=== PATIENT | female | born 1955 | race Caucasian/White ===

== ENCOUNTER 2018-02-16 15:13 | Inpatient (IN) | payer OTHER ==
[2018-02-16] MEDS: SOD CHLORIDE 0.9% 1,000 ML IV (18:01)
[2018-02-16] MEDS: ONDANSETRON 4 MG INJ IV (18:01)
[2018-02-16] MEDS: morphine 4 MG/ML VIAL IV (18:02)
[2018-02-16 18:06] LABS: ADD MAN DIFF? NO
[2018-02-16 18:07] LABS: BASOPHIL # 0.1 10^3/ul (0.0-0.1); BASOPHILS % 0.4 % (0.0-2.0); EOSINOPHILS # 0.3 10^3/ul (0.0-0.5); EOSINOPHILS % 2.1 % (0.0-7.0); HEMATOCRIT 39.9 % (37.0-47.0); LYMPHOCYTES # 2.7 10^3/ul (0.8-2.9); LYMPHOCYTES % 21.4 % (15.0-51.0); MEAN CORPUSCULAR HEMOGLOBIN 28.1 pg (29.0-33.0); MEAN CORPUSCULAR HGB CONC 32.6 g/dl (32.0-37.0); MEAN CORPUSCULAR VOLUME 86.4 fl (82.0-101.0); MEAN PLATELET VOLUME 10.3 fl (7.4-10.4); MONOCYTE # 0.8 10^3/ul (0.3-0.9); MONOCYTES % 6.6 % (0.0-11.0); NEUTROPHIL # 8.6 10^3/ul (1.6-7.5); NEUTROPHILS % 69.2 % (39.0-77.0); PLATELET COUNT 197 10^3/UL (140-415); RED BLOOD COUNT 4.62 10^6/ul (4.20-5.40); RED CELL DISTRIBUTION WIDTH 13.4 % (11.5-14.5)
[2018-02-16 18:07] LABS: WHITE BLOOD COUNT 12.4 10^3/ul (4.8-10.8)
[2018-02-16 18:10] LABS: ADD UMIC NO; UR ASCORBIC ACID NEGATIVE (NEGATIVE); UR BILIRUBIN (Dip) NEGATIVE (NEGATIVE); UR BLOOD (Dip) NEGATIVE (NEGATIVE); UR CLARITY CLEAR (CLEAR); UR COLOR YELLOW (YELLOW); UR GLUCOSE (Dip) NEGATIVE (NEGATIVE); UR KETONES (Dip) 1+ mg/dL (NEGATIVE); UR LEUKOCYTE ESTERASE (Dip) NEGATIVE Leu/ul (NEGATIVE); UR NITRITE (Dip) NEGATIVE (NEGATIVE); UR SPECIFIC GRAVITY (Dip) 1.017 (1.003-1.030); UR TOTAL PROTEIN (Dip) NEGATIVE (NEGATIVE); UR UROBILINOGEN (Dip) NEGATIVE (NEGATIVE)
[2018-02-16 18:30] LABS: ALANINE AMINOTRANSFERASE 24 IU/L (13-69); ALBUMIN 4.3 g/dl (3.3-4.9); ALBUMIN/GLOBULIN RATIO 0.91; ALKALINE PHOSPHATASE 108 IU/L (42-121); ANION GAP 15 (8-16); ASPARTATE AMINO TRANSFERASE 23 IU/L (15-46); BILIRUBIN,INDIRECT 0.5 mg/dl (0-1.1); BILIRUBIN,TOTAL 0.5 mg/dl (0.2-1.3); BLOOD UREA NITROGEN 13 mg/dl (7-20); CALCIUM 9.6 mg/dl (8.4-10.2); CARBON DIOXIDE 30 mmol/L (21-31); CHLORIDE 103 mmol/L (97-110); CREATININE 0.64 mg/dl (0.44-1.00); GLUCOSE 125 mg/dl (70-220); LIPASE 46 U/L (23-300); POTASSIUM 4.1 mmol/L (3.5-5.1); SODIUM 144 mmol/L (135-144)
[2018-02-16] MEDS ORDERED: IOHEXOL 300MG/ML 150 ML BTL (19:16)
[2018-02-16] MEDS ORDERED: SOD CHLORIDE 0.9% 100 ML (19:16)
[2018-02-16] MEDS: PIPER-TAZO 3.375 GM IV (PMX) 100 ML IVPB (21:18)
[2018-02-16] MEDS ORDERED: morphine 4 MG/ML VIAL IV (22:43)
[2018-02-16] MEDS ORDERED: BISACODYL 10 MG SUPP PR (23:30)
[2018-02-16] MEDS ORDERED: NACL 0.9% 3 ML SYG IV (23:30)
[2018-02-16] MEDS ORDERED: ACETAMINOPHEN 325 MG TAB PO ×2 (23:30)
[2018-02-16] MEDS ORDERED: MAGNESIUM HYDROXIDE 30ML CUP PO (23:30)
[2018-02-16] MEDS ORDERED: DOCUSATE SODIUM 100 MG CAP PO (23:30)
[2018-02-16] MEDS ORDERED: ONDANSETRON 4 MG INJ IV (23:30)
[2018-02-16] MEDS ORDERED: BISACODYL (EC) 5 MG TAB PO (23:30)
[2018-02-16] MEDS ORDERED: ONDANSETRON 4 MG TAB PO (23:30)
[2018-02-16] MEDS ORDERED: GLUCAGON 1 MG INJ IM (23:45)
[2018-02-16] MEDS ORDERED: DEXTROSE 50% 50 ML SYRINGE IV ×2 (23:45)
[2018-02-16] MEDS ORDERED: GLUCOSE GEL 15 GRAM TUBE BUCCAL (23:45)
[2018-02-16] MEDS ORDERED: GLUCOSE GEL 15 GRAM TUBE PO ×2 (23:45)
[2018-02-17] MEDS: ACCU-CHEK XX (02:00)
[2018-02-17] MEDS: metroNIDAZOLE 500 MG TAB PO ×3 (02:48→22:07)
[2018-02-17] MEDS: CIPROFLOXACIN 500 MG TAB PO ×2 (02:49→21:42)
[2018-02-17] MEDS: morphine 2 MG INJ IV (03:30)
[2018-02-17 06:43] LABS: ADD MAN DIFF? NO
[2018-02-17 06:46] LABS: WHITE BLOOD COUNT 9.9 10^3/ul (4.8-10.8)
[2018-02-17 06:46] LABS: BASOPHILS % 0.3 % (0.0-2.0); EOSINOPHILS # 0.2 10^3/ul (0.0-0.5); EOSINOPHILS % 2.4 % (0.0-7.0); HEMATOCRIT 36.7 % (37.0-47.0); HEMOGLOBIN 11.7 g/dl (12.0-16.0); LYMPHOCYTES # 1.8 10^3/ul (0.8-2.9); LYMPHOCYTES % 18.4 % (15.0-51.0); MEAN CORPUSCULAR HEMOGLOBIN 27.9 pg (29.0-33.0); MEAN CORPUSCULAR HGB CONC 31.9 g/dl (32.0-37.0); MEAN CORPUSCULAR VOLUME 87.4 fl (82.0-101.0); MEAN PLATELET VOLUME 10.3 fl (7.4-10.4); MONOCYTE # 0.7 10^3/ul (0.3-0.9); MONOCYTES % 7.5 % (0.0-11.0); NEUTROPHILS % 71.2 % (39.0-77.0); PLATELET COUNT 161 10^3/UL (140-415); RED CELL DISTRIBUTION WIDTH 13.3 % (11.5-14.5)
[2018-02-17 07:32] LABS: ALANINE AMINOTRANSFERASE 21 IU/L (13-69); ALBUMIN 3.5 g/dl (3.3-4.9); ALBUMIN/GLOBULIN RATIO 0.85; ALKALINE PHOSPHATASE 80 IU/L (42-121); ANION GAP 16 (8-16); ASPARTATE AMINO TRANSFERASE 23 IU/L (15-46); BILIRUBIN,INDIRECT 0.4 mg/dl (0-1.1); BILIRUBIN,TOTAL 0.4 mg/dl (0.2-1.3); BLOOD UREA NITROGEN 12 mg/dl (7-20); CALCIUM 8.7 mg/dl (8.4-10.2); CARBON DIOXIDE 30 mmol/L (21-31); CHLORIDE 103 mmol/L (97-110); CREATININE 0.73 mg/dl (0.44-1.00); GLUCOSE 92 mg/dl (70-220); POTASSIUM 4.7 mmol/L (3.5-5.1); SODIUM 144 mmol/L (135-144); TOTAL PROTEIN 7.6 g/dl (6.1-8.1)
[2018-02-17 07:58] LABS: HEMOGLOBIN A1C 6.4 % (0-5.9)
[2018-02-17] MEDS: INSULIN ASPART [NOVOLOG] 3 ML PEN SC ×4 (08:00→21:00)
[2018-02-17] MEDS: ENOXAPARIN 40 MG/0.4 ML SYG SC (08:31)
[2018-02-17] MEDS: LISINOPRIL 20 MG TAB PO (08:31)
[2018-02-17] MEDS: HYDROCODONE/APAP (5/325) TAB PO ×2 (08:32→18:12)
[2018-02-17] MEDS: METOPROLOL 25 MG TAB PO (08:33)
[2018-02-17] MEDS ORDERED: IOHEXOL 100 ML (12:08)
[2018-02-17] MEDS ORDERED: SOD CHLORIDE 0.9% 100 ML (12:08)
[2018-02-17 18:29] LABS: IRON 47 ug/dl (35-150)
[2018-02-17 18:31] LABS: LACTATE DEHYDROGENASE 709 IU/L (313-618)
[2018-02-17 18:38] LABS: % IRON SATURATION 15 % SAT (22-52); TOTAL IRON BINDING CAPACITY 316 ug/dl (241-421)
[2018-02-17 20:11] LABS: FERRITIN 43.4 ng/ml (11.1-264.0)
[2018-02-17 20:36] LABS: INR 1.18; PROTIME 15.2 Sec (11.9-14.9); PT RATIO 1.2
[2018-02-17 20:37] LABS: PARTIAL THROMBOPLASTIN TIME 38.5 Sec (25.0-35.0)
[2018-02-18] MEDS: DEXTROSE 5%-0.45% NACL 1,000 ML IV ×2 (00:27→12:45)
[2018-02-18] MEDS: ACCU-CHEK XX (02:00)
[2018-02-18] MEDS: INSULIN ASPART [NOVOLOG] 3 ML PEN SC ×6 (02:30→20:17)
[2018-02-18] MEDS: metroNIDAZOLE 500 MG TAB PO ×2 (06:20→14:26)
[2018-02-18 06:29] LABS: ADD MAN DIFF? NO
[2018-02-18 06:34] LABS: WHITE BLOOD COUNT 7.6 10^3/ul (4.8-10.8)
[2018-02-18 06:34] LABS: BASOPHILS % 0.4 % (0.0-2.0); EOSINOPHILS # 0.3 10^3/ul (0.0-0.5); EOSINOPHILS % 3.3 % (0.0-7.0); HEMATOCRIT 34.6 % (37.0-47.0); HEMOGLOBIN 11.2 g/dl (12.0-16.0); LYMPHOCYTES # 1.5 10^3/ul (0.8-2.9); LYMPHOCYTES % 19.7 % (15.0-51.0); MEAN CORPUSCULAR HGB CONC 32.4 g/dl (32.0-37.0); MEAN CORPUSCULAR VOLUME 86.5 fl (82.0-101.0); MEAN PLATELET VOLUME 10.2 fl (7.4-10.4); MONOCYTE # 0.6 10^3/ul (0.3-0.9); MONOCYTES % 8.2 % (0.0-11.0); NEUTROPHIL # 5.2 10^3/ul (1.6-7.5); NEUTROPHILS % 68.1 % (39.0-77.0); PLATELET COUNT 170 10^3/UL (140-415); RED CELL DISTRIBUTION WIDTH 13.6 % (11.5-14.5)
[2018-02-18 06:54] LABS: ANION GAP 13 (8-16); BLOOD UREA NITROGEN 11 mg/dl (7-20); CALCIUM 8.5 mg/dl (8.4-10.2); CARBON DIOXIDE 30 mmol/L (21-31); CHLORIDE 100 mmol/L (97-110); CREATININE 0.72 mg/dl (0.44-1.00); GLUCOSE 153 mg/dl (70-220); MAGNESIUM 1.8 mg/dl (1.7-2.5); PHOSPHORUS 4.7 mg/dl (2.5-4.9); POTASSIUM 4.3 mmol/L (3.5-5.1); SODIUM 139 mmol/L (135-144)
[2018-02-18] MEDS: ENOXAPARIN 40 MG/0.4 ML SYG SC (08:38)
[2018-02-18] MEDS: CIPROFLOXACIN 500 MG TAB PO (08:39)
[2018-02-18] MEDS: METOPROLOL 25 MG TAB PO (08:39)
[2018-02-18] MEDS: SOD CHLORIDE 0.9% 100 ML (09:54)
[2018-02-18] MEDS: IOHEXOL 300MG/ML 150 ML BTL (09:55)
[2018-02-18] MEDS: LISINOPRIL 20 MG TAB PO (10:46)
[2018-02-18] MEDS: HYDROCODONE/APAP (5/325) TAB PO (17:29)
[2018-02-18] MEDS: BISACODYL (EC) 5 MG TAB PO (20:09)
[2018-02-18] MEDS: CIPROFLOXACIN 400MG/D5W 200 ML IVPB (20:16)
[2018-02-18] MEDS: MAGNESIUM CITRATE 300 ML BTL PO (20:45)
[2018-02-18] MEDS: POLYETHYLENE GLYCOL 3350 119 GM POWDER PO (21:22)
[2018-02-18] MEDS: metroNIDAZOLE 500 MG/NS (PMX) 100 ML IVPB (21:38)
[2018-02-18] MEDS: ONDANSETRON 4 MG INJ IV (22:26)
[2018-02-19] MEDS: INSULIN ASPART [NOVOLOG] 3 ML PEN SC ×6 (01:04→20:25)
[2018-02-19 01:32] LABS: PROTEIN, TOTAL 6.9 g/dL (6.1-8.1)
[2018-02-19] MEDS: ACCU-CHEK XX (02:00)
[2018-02-19] MEDS: morphine 2 MG INJ IV ×4 (03:00→20:30)
[2018-02-19] MEDS: DEXTROSE 5%-0.45% NACL 1,000 ML IV ×2 (03:36→12:52)
[2018-02-19] MEDS: ONDANSETRON 4 MG INJ IV ×2 (05:03→20:48)
[2018-02-19] MEDS: metroNIDAZOLE 500 MG/NS (PMX) 100 ML IVPB ×3 (05:19→22:45)
[2018-02-19] MEDS: POLYETHYLENE GLYCOL 3350 119 GM POWDER PO (06:00)
[2018-02-19 06:47] LABS: ADD MAN DIFF? NO
[2018-02-19 06:54] LABS: BASOPHILS % 0.3 % (0.0-2.0); EOSINOPHILS # 0.1 10^3/ul (0.0-0.5); EOSINOPHILS % 1.1 % (0.0-7.0); HEMATOCRIT 38.5 % (37.0-47.0); HEMOGLOBIN 12.7 g/dl (12.0-16.0); LYMPHOCYTES # 1.3 10^3/ul (0.8-2.9); LYMPHOCYTES % 14.9 % (15.0-51.0); MEAN PLATELET VOLUME 10.9 fl (7.4-10.4); MONOCYTE # 0.6 10^3/ul (0.3-0.9); MONOCYTES % 6.9 % (0.0-11.0); NEUTROPHIL # 6.8 10^3/ul (1.6-7.5); NEUTROPHILS % 76.6 % (39.0-77.0); PLATELET COUNT 189 10^3/UL (140-415); RED BLOOD COUNT 4.53 10^6/ul (4.20-5.40); RED CELL DISTRIBUTION WIDTH 13.4 % (11.5-14.5)
[2018-02-19 06:54] LABS: WHITE BLOOD COUNT 8.9 10^3/ul (4.8-10.8)
[2018-02-19 07:19] LABS: ANION GAP 13 (8-16); BLOOD UREA NITROGEN 10 mg/dl (7-20); CALCIUM 8.9 mg/dl (8.4-10.2); CARBON DIOXIDE 29 mmol/L (21-31); CHLORIDE 104 mmol/L (97-110); CREATININE 0.63 mg/dl (0.44-1.00); GLUCOSE 195 mg/dl (70-220); MAGNESIUM 2.1 mg/dl (1.7-2.5); PHOSPHORUS 4.6 mg/dl (2.5-4.9); POTASSIUM 3.4 mmol/L (3.5-5.1); SODIUM 143 mmol/L (135-144)
[2018-02-19] MEDS: BISACODYL (EC) 5 MG TAB PO (08:02)
[2018-02-19] MEDS: CIPROFLOXACIN 400MG/D5W 200 ML IVPB ×2 (08:50→21:28)
[2018-02-19] MEDS: LISINOPRIL 20 MG TAB PO (09:00)
[2018-02-19] MEDS: METOPROLOL 25 MG TAB PO (09:00)
[2018-02-19] MEDS: ENOXAPARIN 40 MG/0.4 ML SYG SC (09:00)
[2018-02-19] MEDS: POTASSIUM CHLORIDE 100 ML IVPB ×2 (12:01→15:50)
[2018-02-19] MEDS: METOCLOPRAMIDE 10 MG INJ IV (12:28)
[2018-02-19] MEDS: NA PHOSPHATE/BIPHOS 133 ML ENEMA PR ×3 (14:27→15:50)
[2018-02-19 17:26] LABS: BETA-2 MICROGLOBULIN 3.63 mg/L (< OR = 2.51)
[2018-02-19] MEDS ORDERED: MIDAZOLAM 1 MG/ML 2 ML INJ ×2 (18:34)
[2018-02-19] MEDS ORDERED: FENTAnyl 50 MCG/ML VIAL (18:34)
[2018-02-19 23:27] LABS: ALBUMIN 3.1 g/dL (3.8-4.8); ALPHA-1-GLOBULINS 0.3 g/dL (0.2-0.3); ALPHA-2-GLOBULINS 0.8 g/dL (0.5-0.9); BETA 2 GLOBULINS 0.4 g/dL (0.2-0.5); BETA GLOBULINS 0.4 g/dL (0.4-0.6); GAMMA GLOBULINS 1.9 g/dL (0.8-1.7)
[2018-02-20] MEDS: ACCU-CHEK XX (02:00)
[2018-02-20 06:07] LABS: ADD MAN DIFF? NO
[2018-02-20 06:12] LABS: WHITE BLOOD COUNT 10.8 10^3/ul (4.8-10.8)
[2018-02-20 06:12] LABS: BASOPHILS % 0.2 % (0.0-2.0); EOSINOPHILS # 0.1 10^3/ul (0.0-0.5); HEMATOCRIT 36.1 % (37.0-47.0); HEMOGLOBIN 11.9 g/dl (12.0-16.0); LYMPHOCYTES # 1.6 10^3/ul (0.8-2.9); LYMPHOCYTES % 14.6 % (15.0-51.0); MEAN CORPUSCULAR HEMOGLOBIN 28.3 pg (29.0-33.0); MEAN PLATELET VOLUME 10.4 fl (7.4-10.4); MONOCYTE # 0.9 10^3/ul (0.3-0.9); MONOCYTES % 8.2 % (0.0-11.0); NEUTROPHIL # 8.1 10^3/ul (1.6-7.5); NEUTROPHILS % 75.5 % (39.0-77.0); PLATELET COUNT 193 10^3/UL (140-415); RED CELL DISTRIBUTION WIDTH 13.5 % (11.5-14.5)
[2018-02-20] MEDS: metroNIDAZOLE 500 MG/NS (PMX) 100 ML IVPB ×3 (06:14→21:45)
[2018-02-20] MEDS: HYDROCODONE/APAP (5/325) TAB PO ×2 (06:22→14:56)
[2018-02-20 06:38] LABS: ANION GAP 12 (8-16); BLOOD UREA NITROGEN 10 mg/dl (7-20); CALCIUM 8.3 mg/dl (8.4-10.2); CARBON DIOXIDE 31 mmol/L (21-31); CHLORIDE 105 mmol/L (97-110); CREATININE 0.67 mg/dl (0.44-1.00); GLUCOSE 161 mg/dl (70-220); PHOSPHORUS 3.3 mg/dl (2.5-4.9); POTASSIUM 4.5 mmol/L (3.5-5.1); SODIUM 143 mmol/L (135-144)
[2018-02-20] MEDS: DEXTROSE 5%-0.45% NACL 1,000 ML IV ×2 (08:12→21:53)
[2018-02-20] MEDS: INSULIN ASPART [NOVOLOG] 3 ML PEN SC ×4 (08:28→21:00)
[2018-02-20] MEDS: ENOXAPARIN 40 MG/0.4 ML SYG SC (08:29)
[2018-02-20] MEDS: CIPROFLOXACIN 400MG/D5W 200 ML IVPB ×2 (08:32→21:45)
[2018-02-20] MEDS: LISINOPRIL 20 MG TAB PO (08:42)
[2018-02-20] MEDS: METOPROLOL 25 MG TAB PO (08:43)
[2018-02-21] MEDS: ACCU-CHEK XX (02:00)
[2018-02-21] MEDS: HYDROCODONE/APAP (5/325) TAB PO (02:05)
[2018-02-21] MEDS: metroNIDAZOLE 500 MG/NS (PMX) 100 ML IVPB ×3 (05:33→22:17)
[2018-02-21 05:51] LABS: ADD MAN DIFF? NO; BASOPHILS % 0.3 % (0.0-2.0); EOSINOPHILS # 0.2 10^3/ul (0.0-0.5); EOSINOPHILS % 2.2 % (0.0-7.0); HEMATOCRIT 34.4 % (37.0-47.0); HEMOGLOBIN 11.3 g/dl (12.0-16.0); LYMPHOCYTES # 1.8 10^3/ul (0.8-2.9); MEAN CORPUSCULAR HEMOGLOBIN 28.5 pg (29.0-33.0); MEAN CORPUSCULAR HGB CONC 32.8 g/dl (32.0-37.0); MEAN CORPUSCULAR VOLUME 86.9 fl (82.0-101.0); MEAN PLATELET VOLUME 10.4 fl (7.4-10.4); MONOCYTE # 0.8 10^3/ul (0.3-0.9); MONOCYTES % 9.1 % (0.0-11.0); NEUTROPHILS % 68.2 % (39.0-77.0); PLATELET COUNT 185 10^3/UL (140-415); RED BLOOD COUNT 3.96 10^6/ul (4.20-5.40); RED CELL DISTRIBUTION WIDTH 13.5 % (11.5-14.5)
[2018-02-21 05:51] LABS: WHITE BLOOD COUNT 8.8 10^3/ul (4.8-10.8)
[2018-02-21 06:25] LABS: ANION GAP 9 (8-16); BLOOD UREA NITROGEN 9 mg/dl (7-20); CALCIUM 8.3 mg/dl (8.4-10.2); CARBON DIOXIDE 32 mmol/L (21-31); CHLORIDE 108 mmol/L (97-110); CREATININE 0.65 mg/dl (0.44-1.00); GLUCOSE 145 mg/dl (70-220); MAGNESIUM 1.9 mg/dl (1.7-2.5); PHOSPHORUS 3.1 mg/dl (2.5-4.9); POTASSIUM 4.8 mmol/L (3.5-5.1); SODIUM 144 mmol/L (135-144)
[2018-02-21] MEDS: DEXTROSE 5%-0.45% NACL 1,000 ML IV ×2 (06:51→22:21)
[2018-02-21] MEDS: morphine 2 MG INJ IV ×2 (07:28→13:20)
[2018-02-21] MEDS: INSULIN ASPART [NOVOLOG] 3 ML PEN SC ×4 (08:00→21:00)
[2018-02-21] MEDS: LISINOPRIL 20 MG TAB PO (09:00)
[2018-02-21] MEDS: ENOXAPARIN 40 MG/0.4 ML SYG SC (09:00)
[2018-02-21] MEDS: METOPROLOL 25 MG TAB PO (09:00)
[2018-02-21] MEDS: CIPROFLOXACIN 400MG/D5W 200 ML IVPB ×2 (09:15→22:17)
[2018-02-21] MEDS ORDERED: morphine SULFATE/PF (10 MG/10 ML) INJ (16:44)
[2018-02-21] MEDS ORDERED: MIDAZOLAM 1 MG/ML 2 ML INJ (16:52)
[2018-02-21] MEDS ORDERED: BUPIVACAINE 0.75%/DEXT (SPINAL) 2 ML INJ (16:52)
[2018-02-21] MEDS ORDERED: PROPOFOL 20 ML (17:24)
[2018-02-21] MEDS ORDERED: ROCURONIUM 50 MG INJ ×2 (17:24)
[2018-02-21] MEDS ORDERED: SUCCINYLCHOLINE CHLORIDE 100 MG/5 ML SYG IV (17:24)
[2018-02-21] MEDS ORDERED: LIDOCAINE 2% (SDV) 5 ML INJ (17:24)
[2018-02-21] MEDS: BUPIVACAINE 0.25% (MPF) 30 ML INJ (17:35)
[2018-02-21] MEDS ORDERED: EPHEDrine SULFATE 50 MG/5 ML SYG (17:39)
[2018-02-21] MEDS ORDERED: ONDANSETRON 4 MG INJ (17:40)
[2018-02-21] MEDS ORDERED: FAMOTIDINE 20 MG INJ (17:40)
[2018-02-21] MEDS ORDERED: SUGAMMADEX SODIUM 200 MG/2 ML VIAL IV ×2 (18:13→18:22)
[2018-02-21] MEDS ORDERED: PROCHLORPERAZINE 10 MG INJ IV (18:30)
[2018-02-21] MEDS ORDERED: FENTAnyl 50 MCG/ML VIAL IV ×3 (18:30)
[2018-02-21] MEDS ORDERED: NALOXONE (0.4 MG/ML) INJ IV (18:30)
[2018-02-21] MEDS ORDERED: HYDROmorphONE (0.2 MG/ML) 10ML SYG IV ×3 (18:30)
[2018-02-21] MEDS ORDERED: NALBUPHINE HCL (10 MG/1 ML) INJ IV (18:30)
[2018-02-21] MEDS ORDERED: HYDROmorphONE 0.5 MG/0.5 ML SYG IV ×2 (18:30)
[2018-02-21] MEDS ORDERED: LABETALOL HCL 20MG INJ IV (18:30)
[2018-02-21] MEDS ORDERED: ONDANSETRON 4 MG INJ IV ×3 (18:30→19:00)
[2018-02-21] MEDS ORDERED: hydrALAzine 20 MG INJ IV (18:30)
[2018-02-21] MEDS ORDERED: DIPHENHYDRAMINE 50 MG INJ IV ×2 (18:30)
[2018-02-21] MEDS ORDERED: MEPERIDINE 25 MG INJ IV (18:30)
[2018-02-21] MEDS ORDERED: morphine 2 MG INJ IV (19:00)
[2018-02-21] MEDS ORDERED: ACETAMINOPHEN 325 MG TAB PO (19:00)
[2018-02-21] MEDS: D5-NS + KCL 20 MEQ 1,000 ML IV (22:21)
[2018-02-22] MEDS: ACCU-CHEK XX (02:00)
[2018-02-22] MEDS: D5-NS + KCL 20 MEQ 1,000 ML IV ×2 (04:36→13:45)
[2018-02-22] MEDS: metroNIDAZOLE 500 MG/NS (PMX) 100 ML IVPB ×3 (06:04→21:47)
[2018-02-22 06:05] LABS: ADD MAN DIFF? NO
[2018-02-22 06:15] LABS: WHITE BLOOD COUNT 13.5 10^3/ul (4.8-10.8)
[2018-02-22 06:15] LABS: BASOPHIL # 0.1 10^3/ul (0.0-0.1); BASOPHILS % 0.4 % (0.0-2.0); EOSINOPHILS % 0.1 % (0.0-7.0); HEMOGLOBIN 12.7 g/dl (12.0-16.0); LYMPHOCYTES # 0.7 10^3/ul (0.8-2.9); MEAN CORPUSCULAR HEMOGLOBIN 28.1 pg (29.0-33.0); MEAN CORPUSCULAR HGB CONC 31.8 g/dl (32.0-37.0); MEAN CORPUSCULAR VOLUME 88.5 fl (82.0-101.0); MEAN PLATELET VOLUME 10.5 fl (7.4-10.4); MONOCYTES % 7.2 % (0.0-11.0); NEUTROPHIL # 11.8 10^3/ul (1.6-7.5); NEUTROPHILS % 86.9 % (39.0-77.0); PLATELET COUNT 229 10^3/UL (140-415); RED BLOOD COUNT 4.52 10^6/ul (4.20-5.40)
[2018-02-22 06:21] LABS: ANION GAP 14 (8-16)
[2018-02-22 06:35] LABS: BLOOD UREA NITROGEN 9 mg/dl (7-20); CALCIUM 7.8 mg/dl (8.4-10.2); CARBON DIOXIDE 26 mmol/L (21-31); CHLORIDE 105 mmol/L (97-110); CREATININE 0.82 mg/dl (0.44-1.00); GLUCOSE 271 mg/dl (70-220); MAGNESIUM 1.5 mg/dl (1.7-2.5); PHOSPHORUS 3.9 mg/dl (2.5-4.9); POTASSIUM 4.5 mmol/L (3.5-5.1); SODIUM 140 mmol/L (135-144)
[2018-02-22] MEDS: INSULIN ASPART [NOVOLOG] 3 ML PEN SC ×4 (08:40→21:00)
[2018-02-22] MEDS: ENOXAPARIN 40 MG/0.4 ML SYG SC (08:40)
[2018-02-22] MEDS: CIPROFLOXACIN 400MG/D5W 200 ML IVPB ×2 (08:41→21:47)
[2018-02-22] MEDS: LISINOPRIL 20 MG TAB PO (08:42)
[2018-02-22] MEDS: METOPROLOL 25 MG TAB PO (08:42)
[2018-02-22] MEDS: HYDROCODONE/APAP (5/325) TAB PO ×3 (08:43→20:56)
[2018-02-22 13:15] LABS: LACTIC ACID 1.2 mmol/L (0.5-2.0)
[2018-02-22] MEDS: MAGNESIUM SULFATE 2 GM/50 ML 50 ML IVPB (14:51)
[2018-02-23] MEDS: D5-NS + KCL 20 MEQ 1,000 ML IV ×2 (00:36→13:28)
[2018-02-23] MEDS: ACCU-CHEK XX (02:00)
[2018-02-23] MEDS: HYDROCODONE/APAP (5/325) TAB PO ×3 (04:16→20:46)
[2018-02-23 05:17] LABS: ADD MAN DIFF? NO
[2018-02-23 05:30] LABS: BASOPHILS % 0.3 % (0.0-2.0); EOSINOPHILS % 0.3 % (0.0-7.0); HEMATOCRIT 32.9 % (37.0-47.0); HEMOGLOBIN 10.7 g/dl (12.0-16.0); LYMPHOCYTES # 1.1 10^3/ul (0.8-2.9); LYMPHOCYTES % 8.2 % (15.0-51.0); MEAN CORPUSCULAR HEMOGLOBIN 28.5 pg (29.0-33.0); MEAN CORPUSCULAR HGB CONC 32.5 g/dl (32.0-37.0); MEAN CORPUSCULAR VOLUME 87.7 fl (82.0-101.0); MEAN PLATELET VOLUME 10.5 fl (7.4-10.4); MONOCYTES % 7.7 % (0.0-11.0); NEUTROPHIL # 10.8 10^3/ul (1.6-7.5); PLATELET COUNT 162 10^3/UL (140-415); RED BLOOD COUNT 3.75 10^6/ul (4.20-5.40)
[2018-02-23 05:51] LABS: PHOSPHORUS 3.1 mg/dl (2.5-4.9)
[2018-02-23 06:13] LABS: ANION GAP 9 (8-16); BLOOD UREA NITROGEN 10 mg/dl (7-20); CALCIUM 7.7 mg/dl (8.4-10.2); CARBON DIOXIDE 27 mmol/L (21-31); CHLORIDE 105 mmol/L (97-110); CREATININE 0.86 mg/dl (0.44-1.00); GLUCOSE 186 mg/dl (70-220); POTASSIUM 4.2 mmol/L (3.5-5.1); SODIUM 137 mmol/L (135-144)
[2018-02-23] MEDS: ENOXAPARIN 40 MG/0.4 ML SYG SC (06:23)
[2018-02-23] MEDS: metroNIDAZOLE 500 MG/NS (PMX) 100 ML IVPB ×3 (06:23→23:03)
[2018-02-23] MEDS: INSULIN ASPART [NOVOLOG] 3 ML PEN SC ×4 (07:59→21:00)
[2018-02-23] MEDS: METOPROLOL 25 MG TAB PO (08:25)
[2018-02-23] MEDS: LISINOPRIL 20 MG TAB PO (08:25)
[2018-02-23] MEDS: CIPROFLOXACIN 400MG/D5W 200 ML IVPB ×2 (08:26→23:03)
[2018-02-23] MEDS: OXYCODONE/ACETAMINOPHEN (5/325) TAB PO (15:28)
[2018-02-24] MEDS: ACCU-CHEK XX (02:00)
[2018-02-24] MEDS: HYDROCODONE/APAP (5/325) TAB PO ×4 (04:54→18:43)
[2018-02-24 05:35] LABS: ADD MAN DIFF? NO
[2018-02-24 05:39] LABS: WHITE BLOOD COUNT 12.7 10^3/ul (4.8-10.8)
[2018-02-24 05:39] LABS: BASOPHILS % 0.2 % (0.0-2.0); EOSINOPHILS # 0.2 10^3/ul (0.0-0.5); EOSINOPHILS % 1.3 % (0.0-7.0); HEMATOCRIT 31.1 % (37.0-47.0); HEMOGLOBIN 10.2 g/dl (12.0-16.0); LYMPHOCYTES # 1.1 10^3/ul (0.8-2.9); LYMPHOCYTES % 8.8 % (15.0-51.0); MEAN CORPUSCULAR HEMOGLOBIN 28.6 pg (29.0-33.0); MEAN CORPUSCULAR HGB CONC 32.8 g/dl (32.0-37.0); MEAN CORPUSCULAR VOLUME 87.1 fl (82.0-101.0); MEAN PLATELET VOLUME 10.5 fl (7.4-10.4); MONOCYTE # 0.9 10^3/ul (0.3-0.9); MONOCYTES % 6.9 % (0.0-11.0); NEUTROPHIL # 10.4 10^3/ul (1.6-7.5); NEUTROPHILS % 82.2 % (39.0-77.0); PLATELET COUNT 181 10^3/UL (140-415); RED BLOOD COUNT 3.57 10^6/ul (4.20-5.40); RED CELL DISTRIBUTION WIDTH 13.9 % (11.5-14.5)
[2018-02-24 05:50] LABS: ANION GAP 11 (8-16); BLOOD UREA NITROGEN 11 mg/dl (7-20); CALCIUM 7.7 mg/dl (8.4-10.2); CARBON DIOXIDE 26 mmol/L (21-31); CHLORIDE 107 mmol/L (97-110); CREATININE 0.73 mg/dl (0.44-1.00); GLUCOSE 152 mg/dl (70-220); POTASSIUM 3.7 mmol/L (3.5-5.1); SODIUM 140 mmol/L (135-144)
[2018-02-24] MEDS: metroNIDAZOLE 500 MG/NS (PMX) 100 ML IVPB ×2 (06:16→14:09)
[2018-02-24] MEDS: ENOXAPARIN 40 MG/0.4 ML SYG SC (06:17)
[2018-02-24] MEDS: CIPROFLOXACIN 400MG/D5W 200 ML IVPB (08:43)
[2018-02-24] MEDS: METOPROLOL 25 MG TAB PO (08:44)
[2018-02-24] MEDS: LISINOPRIL 20 MG TAB PO (08:44)
[2018-02-24] MEDS: INSULIN ASPART [NOVOLOG] 3 ML PEN SC ×4 (08:46→21:00)
[2018-02-24] MEDS: D5-NS + KCL 20 MEQ 1,000 ML IV ×2 (11:12→21:35)
[2018-02-24] MEDS: SOD CHLORIDE 0.9% 500 ML IV (21:34)
[2018-02-24] MEDS: MECLIZINE 12.5 MG TAB PO (21:34)
[2018-02-25] MEDS: ACCU-CHEK XX (01:32)
[2018-02-25] MEDS: HYDROCODONE/APAP (5/325) TAB PO ×3 (01:33→19:57)
[2018-02-25 06:10] LABS: ADD MAN DIFF? NO
[2018-02-25 06:20] LABS: WHITE BLOOD COUNT 10.2 10^3/ul (4.8-10.8)
[2018-02-25 06:20] LABS: BASOPHILS % 0.3 % (0.0-2.0); EOSINOPHILS # 0.2 10^3/ul (0.0-0.5); EOSINOPHILS % 2.4 % (0.0-7.0); HEMATOCRIT 28.7 % (37.0-47.0); HEMOGLOBIN 9.4 g/dl (12.0-16.0); LYMPHOCYTES # 1.3 10^3/ul (0.8-2.9); LYMPHOCYTES % 12.9 % (15.0-51.0); MEAN CORPUSCULAR HEMOGLOBIN 28.6 pg (29.0-33.0); MEAN CORPUSCULAR HGB CONC 32.8 g/dl (32.0-37.0); MEAN CORPUSCULAR VOLUME 87.2 fl (82.0-101.0); MEAN PLATELET VOLUME 10.8 fl (7.4-10.4); MONOCYTE # 0.8 10^3/ul (0.3-0.9); MONOCYTES % 7.8 % (0.0-11.0); NEUTROPHIL # 7.8 10^3/ul (1.6-7.5); NEUTROPHILS % 76.2 % (39.0-77.0); PLATELET COUNT 200 10^3/UL (140-415); RED BLOOD COUNT 3.29 10^6/ul (4.20-5.40)
[2018-02-25 06:29] LABS: ANION GAP 6 (8-16); BLOOD UREA NITROGEN 10 mg/dl (7-20); CALCIUM 7.7 mg/dl (8.4-10.2); CARBON DIOXIDE 28 mmol/L (21-31); CHLORIDE 110 mmol/L (97-110); CREATININE 0.67 mg/dl (0.44-1.00); GLUCOSE 142 mg/dl (70-220); POTASSIUM 3.5 mmol/L (3.5-5.1); SODIUM 140 mmol/L (135-144)
[2018-02-25] MEDS: ENOXAPARIN 40 MG/0.4 ML SYG SC (06:42)
[2018-02-25] MEDS: INSULIN ASPART [NOVOLOG] 3 ML PEN SC ×4 (08:00→20:28)
[2018-02-25] MEDS: METOPROLOL 25 MG TAB PO (08:34)
[2018-02-25] MEDS: LISINOPRIL 20 MG TAB PO (08:34)
[2018-02-25] MEDS ORDERED: morphine LIQ (10 MG/5 ML) CUP PO (16:30)
[2018-02-25] MEDS: D5-NS + KCL 20 MEQ 1,000 ML IV (23:43)
[2018-02-26] MEDS: ACCU-CHEK XX (01:32)
[2018-02-26] MEDS: HYDROCODONE/APAP (5/325) TAB PO ×2 (06:08→12:39)
[2018-02-26] MEDS: ENOXAPARIN 40 MG/0.4 ML SYG SC (06:09)
[2018-02-26 07:30] LABS: ADD MAN DIFF? NO
[2018-02-26 07:34] LABS: BASOPHILS % 0.4 % (0.0-2.0); EOSINOPHILS # 0.2 10^3/ul (0.0-0.5); EOSINOPHILS % 2.2 % (0.0-7.0); HEMATOCRIT 34.4 % (37.0-47.0); HEMOGLOBIN 11.2 g/dl (12.0-16.0); LYMPHOCYTES # 1.9 10^3/ul (0.8-2.9); LYMPHOCYTES % 17.2 % (15.0-51.0); MEAN CORPUSCULAR HEMOGLOBIN 28.1 pg (29.0-33.0); MEAN CORPUSCULAR HGB CONC 32.6 g/dl (32.0-37.0); MEAN CORPUSCULAR VOLUME 86.4 fl (82.0-101.0); MEAN PLATELET VOLUME 10.1 fl (7.4-10.4); MONOCYTES % 8.7 % (0.0-11.0); NEUTROPHIL # 7.8 10^3/ul (1.6-7.5); NEUTROPHILS % 71.1 % (39.0-77.0); PLATELET COUNT 271 10^3/UL (140-415); RED BLOOD COUNT 3.98 10^6/ul (4.20-5.40); RED CELL DISTRIBUTION WIDTH 14.1 % (11.5-14.5)
[2018-02-26 07:58] LABS: ANION GAP 14 (8-16); BLOOD UREA NITROGEN 9 mg/dl (7-20); CALCIUM 8.1 mg/dl (8.4-10.2); CARBON DIOXIDE 26 mmol/L (21-31); CHLORIDE 106 mmol/L (97-110); CREATININE 0.66 mg/dl (0.44-1.00); GLUCOSE 112 mg/dl (70-220); POTASSIUM 3.7 mmol/L (3.5-5.1); SODIUM 142 mmol/L (135-144)
[2018-02-26] MEDS: INSULIN ASPART [NOVOLOG] 3 ML PEN SC ×3 (08:00→17:44)
[2018-02-26] MEDS: METOPROLOL 25 MG TAB PO (08:42)
[2018-02-26] MEDS: LISINOPRIL 20 MG TAB PO (08:43)
== END 2018-02-26 17:44 | disposition home health service (06) | DRG 330 ==
LOC: PP2 23:30 → E/R 15:13
PROC: 0DBN4ZZ Excision of Sigmoid Colon, Percutaneous Endoscopic Approach (ICD-10-PCS; principal; 2018-02-19 16:15)
PROC: 0D1N4Z4 Bypass Sigmoid Colon to Cutaneous, Percutaneous Endoscopic Approach (ICD-10-PCS; 2018-02-19 16:15)
PROC: 0DBN8ZX Excision of Sigmoid Colon, Via Natural or Artificial Opening Endoscopic, Diagnostic (ICD-10-PCS; 2018-02-19 16:15)
DX: K57.32 Diverticulitis of large intestine without perforation or abscess without bleeding (principal); C18.9 Malignant neoplasm of colon, unspecified; C78.7 Secondary malignant neoplasm of liver and intrahepatic bile duct; E11.8 Type 2 diabetes mellitus with unspecified complications; I10 Essential (primary) hypertension; D25.9 Leiomyoma of uterus, unspecified; N28.1 Cyst of kidney, acquired
CPT/HCPCS: 36415; 71260; 74018; 74177; 74178; 76705; 80048; 80053; 81003; 82378; 82728; 82962; 83036; 83540; 83605; 83615; 83690; 83735; 84100; 84155; 84165; 85025; 85610; 85730; 86320; 86850; 86900; 86901; 87086; 88305; 88307; 93005; 96374; 96375; 99285-25

== ENCOUNTER 2018-04-28 16:35 | Inpatient (IN) | payer OTHER ==
[2018-04-28 17:39] LABS: ADD MAN DIFF? NO
[2018-04-28 17:45] LABS: WHITE BLOOD COUNT 10.3 10^3/ul (4.8-10.8)
[2018-04-28 17:45] LABS: BASOPHILS % 0.4 % (0.0-2.0); EOSINOPHILS # 0.3 10^3/ul (0.0-0.5); EOSINOPHILS % 2.4 % (0.0-7.0); HEMATOCRIT 36.9 % (37.0-47.0); LYMPHOCYTES # 1.9 10^3/ul (0.8-2.9); LYMPHOCYTES % 18.9 % (15.0-51.0); MEAN CORPUSCULAR HEMOGLOBIN 27.7 pg (29.0-33.0); MEAN CORPUSCULAR HGB CONC 32.5 g/dl (32.0-37.0); MEAN CORPUSCULAR VOLUME 85.2 fl (82.0-101.0); MEAN PLATELET VOLUME 10.5 fl (7.4-10.4); MONOCYTE # 0.8 10^3/ul (0.3-0.9); MONOCYTES % 7.7 % (0.0-11.0); NEUTROPHIL # 7.2 10^3/ul (1.6-7.5); NEUTROPHILS % 70.3 % (39.0-77.0); PLATELET COUNT 232 10^3/UL (140-415); RED BLOOD COUNT 4.33 10^6/ul (4.20-5.40)
[2018-04-28] MEDS: ONDANSETRON 4 MG INJ IV (17:53)
[2018-04-28] MEDS: SOD CHLORIDE 0.9% 1,000 ML IV (17:53)
[2018-04-28] MEDS: HYDROmorphONE 1 MG/ML SYG IV (17:53)
[2018-04-28 17:57] LABS: ADD UMIC YES; UR ASCORBIC ACID NEGATIVE (NEGATIVE); UR BACTERIA FEW /HPF (NONE SEEN); UR BILIRUBIN (Dip) NEGATIVE (NEGATIVE); UR BLOOD (Dip) 2+ mg/dL (NEGATIVE); UR CLARITY CLEAR (CLEAR); UR COLOR YELLOW (YELLOW); UR GLUCOSE (Dip) NEGATIVE (NEGATIVE); UR KETONES (Dip) 1+ mg/dL (NEGATIVE); UR LEUKOCYTE ESTERASE (Dip) NEGATIVE Leu/ul (NEGATIVE); UR NITRITE (Dip) NEGATIVE (NEGATIVE); UR RBC 1 /HPF (0-5); UR SPECIFIC GRAVITY (Dip) 1.004 (1.003-1.030); UR TOTAL PROTEIN (Dip) NEGATIVE (NEGATIVE); UR UROBILINOGEN (Dip) NEGATIVE (NEGATIVE); UR WBC 2 /HPF (0-5)
[2018-04-28 18:04] LABS: ALANINE AMINOTRANSFERASE 18 IU/L (13-69); ALBUMIN 4.3 g/dl (3.3-4.9); ALKALINE PHOSPHATASE 93 IU/L (42-121); ANION GAP 18 (8-16); ASPARTATE AMINO TRANSFERASE 26 IU/L (15-46); BILIRUBIN,INDIRECT 0.4 mg/dl (0-1.1); BILIRUBIN,TOTAL 0.4 mg/dl (0.2-1.3); BLOOD UREA NITROGEN 8 mg/dl (7-20); CALCIUM 9.3 mg/dl (8.4-10.2); CARBON DIOXIDE 24 mmol/L (21-31); CHLORIDE 105 mmol/L (97-110); CREATININE 0.57 mg/dl (0.44-1.00); GLUCOSE 98 mg/dl (70-220); LIPASE 51 U/L (23-300); SODIUM 143 mmol/L (135-144); TOTAL PROTEIN 8.6 g/dl (6.1-8.1)
[2018-04-28 18:17] LABS: INR 1.08; PROTIME 14.1 Sec (11.9-14.9); PT RATIO 1.1
[2018-04-28 18:18] LABS: PARTIAL THROMBOPLASTIN TIME 32.3 Sec (25.0-35.0)
[2018-04-28] MEDS ORDERED: ONDANSETRON 4 MG INJ IV ×2 (23:00→23:30)
[2018-04-28] MEDS ORDERED: ACETAMINOPHEN 325 MG TAB PO ×2 (23:00→23:30)
[2018-04-28] MEDS ORDERED: NACL 0.9% 3 ML SYG IV (23:30)
[2018-04-29] MEDS: SOD CHLORIDE 0.9% 1,000 ML IV ×2 (00:17→03:37)
[2018-04-29] MEDS: morphine 2 MG INJ IV ×4 (00:30→23:04)
[2018-04-29] MEDS ORDERED: GLUCAGON 1 MG INJ IM (03:30)
[2018-04-29] MEDS ORDERED: GLUCOSE GEL 15 GRAM TUBE BUCCAL (03:30)
[2018-04-29] MEDS ORDERED: DEXTROSE 50% 50 ML SYRINGE IV ×2 (03:30)
[2018-04-29] MEDS ORDERED: GLUCOSE GEL 15 GRAM TUBE PO ×2 (03:30)
[2018-04-29] MEDS ORDERED: DEXTROSE 5%-0.45% NACL 1,000 ML IV (03:30)
[2018-04-29] MEDS: INSULIN ASPART [NOVOLOG] 3 ML PEN SC ×3 (05:00→12:43)
[2018-04-29 05:56] LABS: ADD MAN DIFF? NO
[2018-04-29 05:59] LABS: WHITE BLOOD COUNT 7.9 10^3/ul (4.8-10.8)
[2018-04-29 05:59] LABS: BASOPHILS % 0.5 % (0.0-2.0); EOSINOPHILS # 0.2 10^3/ul (0.0-0.5); EOSINOPHILS % 2.5 % (0.0-7.0); HEMATOCRIT 32.2 % (37.0-47.0); HEMOGLOBIN 10.1 g/dl (12.0-16.0); LYMPHOCYTES # 2.1 10^3/ul (0.8-2.9); LYMPHOCYTES % 26.9 % (15.0-51.0); MEAN CORPUSCULAR HEMOGLOBIN 27.2 pg (29.0-33.0); MEAN CORPUSCULAR HGB CONC 31.4 g/dl (32.0-37.0); MEAN CORPUSCULAR VOLUME 86.8 fl (82.0-101.0); MEAN PLATELET VOLUME 10.5 fl (7.4-10.4); MONOCYTE # 0.7 10^3/ul (0.3-0.9); MONOCYTES % 8.7 % (0.0-11.0); NEUTROPHIL # 4.8 10^3/ul (1.6-7.5); NEUTROPHILS % 61.1 % (39.0-77.0); PLATELET COUNT 187 10^3/UL (140-415); RED BLOOD COUNT 3.71 10^6/ul (4.20-5.40); RED CELL DISTRIBUTION WIDTH 14.4 % (11.5-14.5)
[2018-04-29 07:42] LABS: ALANINE AMINOTRANSFERASE 22 IU/L (13-69); ALBUMIN 3.2 g/dl (3.3-4.9); ALBUMIN/GLOBULIN RATIO 0.88; ALKALINE PHOSPHATASE 60 IU/L (42-121); ANION GAP 12 (8-16); ASPARTATE AMINO TRANSFERASE 23 IU/L (15-46); BILIRUBIN,INDIRECT 0.4 mg/dl (0-1.1); BILIRUBIN,TOTAL 0.4 mg/dl (0.2-1.3); BLOOD UREA NITROGEN 7 mg/dl (7-20); CALCIUM 8.5 mg/dl (8.4-10.2); CARBON DIOXIDE 27 mmol/L (21-31); CHLORIDE 109 mmol/L (97-110); CREATININE 0.56 mg/dl (0.44-1.00); GLUCOSE 83 mg/dl (70-220); MAGNESIUM 1.7 mg/dl (1.7-2.5); POTASSIUM 4.6 mmol/L (3.5-5.1); SODIUM 143 mmol/L (135-144); TOTAL PROTEIN 6.8 g/dl (6.1-8.1)
[2018-04-29] MEDS ORDERED: INSULIN ASPART [NOVOLOG] 3 ML PEN SC (17:35)
[2018-04-29] MEDS: Insulin NOVOLOG SS MILD Algorithm (SS with meals and bedtime) SC ×2 (17:35→20:52)
[2018-04-30] MEDS: ACCU-CHEK XX (02:00)
[2018-04-30] MEDS: SOD CHLORIDE 0.9% 500 ML IV (03:35)
[2018-04-30] MEDS: morphine 2 MG INJ IV (05:09)
[2018-04-30 05:54] LABS: ADD MAN DIFF? NO
[2018-04-30 06:00] LABS: WHITE BLOOD COUNT 7.8 10^3/ul (4.8-10.8)
[2018-04-30 06:00] LABS: BASOPHILS % 0.4 % (0.0-2.0); EOSINOPHILS # 0.3 10^3/ul (0.0-0.5); EOSINOPHILS % 3.3 % (0.0-7.0); HEMATOCRIT 33.4 % (37.0-47.0); HEMOGLOBIN 10.4 g/dl (12.0-16.0); LYMPHOCYTES % 25.5 % (15.0-51.0); MEAN CORPUSCULAR HEMOGLOBIN 27.4 pg (29.0-33.0); MEAN CORPUSCULAR HGB CONC 31.1 g/dl (32.0-37.0); MEAN CORPUSCULAR VOLUME 87.9 fl (82.0-101.0); MEAN PLATELET VOLUME 10.9 fl (7.4-10.4); MONOCYTE # 0.6 10^3/ul (0.3-0.9); MONOCYTES % 7.8 % (0.0-11.0); NEUTROPHIL # 4.9 10^3/ul (1.6-7.5); NEUTROPHILS % 62.9 % (39.0-77.0); PLATELET COUNT 208 10^3/UL (140-415); RED CELL DISTRIBUTION WIDTH 14.6 % (11.5-14.5)
[2018-04-30 06:27] LABS: ANION GAP 9 (8-16); BLOOD UREA NITROGEN 5 mg/dl (7-20); CALCIUM 8.5 mg/dl (8.4-10.2); CARBON DIOXIDE 30 mmol/L (21-31); CHLORIDE 108 mmol/L (97-110); CREATININE 0.56 mg/dl (0.44-1.00); GLUCOSE 95 mg/dl (70-220); MAGNESIUM 1.7 mg/dl (1.7-2.5); POTASSIUM 4.1 mmol/L (3.5-5.1); SODIUM 143 mmol/L (135-144)
[2018-04-30] MEDS: Insulin NOVOLOG SS MILD Algorithm (SS with meals and bedtime) SC ×4 (07:30→21:28)
[2018-04-30 12:56] LABS: CANCER ANTIGEN 125 20.2 U/ml (0.0-35.0)
[2018-04-30 15:24] LABS: ADD UMIC YES; UR ASCORBIC ACID NEGATIVE (NEGATIVE); UR BACTERIA FEW /HPF (NONE SEEN); UR BILIRUBIN (Dip) NEGATIVE (NEGATIVE); UR BLOOD (Dip) 2+ mg/dL (NEGATIVE); UR CLARITY CLEAR (CLEAR); UR COLOR STRAW (YELLOW); UR GLUCOSE (Dip) NEGATIVE (NEGATIVE); UR KETONES (Dip) NEGATIVE (NEGATIVE); UR LEUKOCYTE ESTERASE (Dip) NEGATIVE Leu/ul (NEGATIVE); UR NITRITE (Dip) NEGATIVE (NEGATIVE); UR RBC 0 /HPF (0-5); UR SPECIFIC GRAVITY (Dip) 1.004 (1.003-1.030); UR TOTAL PROTEIN (Dip) NEGATIVE (NEGATIVE); UR UROBILINOGEN (Dip) NEGATIVE (NEGATIVE); UR WBC 0 /HPF (0-5)
[2018-04-30] MEDS: morphine LIQ (10 MG/5 ML) CUP PO ×2 (18:37→22:38)
[2018-04-30] MEDS: LACTATED RINGER'S 1,000 ML IV (21:29)
[2018-04-30 22:31] LABS: ADD MAN DIFF? NO
[2018-04-30 22:33] LABS: WHITE BLOOD COUNT 8.4 10^3/ul (4.8-10.8)
[2018-04-30 22:33] LABS: BASOPHILS % 0.5 % (0.0-2.0); EOSINOPHILS # 0.2 10^3/ul (0.0-0.5); EOSINOPHILS % 2.4 % (0.0-7.0); HEMATOCRIT 32.8 % (37.0-47.0); HEMOGLOBIN 10.6 g/dl (12.0-16.0); LYMPHOCYTES # 1.8 10^3/ul (0.8-2.9); LYMPHOCYTES % 21.6 % (15.0-51.0); MEAN CORPUSCULAR HEMOGLOBIN 27.6 pg (29.0-33.0); MEAN CORPUSCULAR HGB CONC 32.3 g/dl (32.0-37.0); MEAN CORPUSCULAR VOLUME 85.4 fl (82.0-101.0); MEAN PLATELET VOLUME 10.7 fl (7.4-10.4); MONOCYTE # 0.7 10^3/ul (0.3-0.9); NEUTROPHIL # 5.7 10^3/ul (1.6-7.5); NEUTROPHILS % 67.3 % (39.0-77.0); PLATELET COUNT 199 10^3/UL (140-415); RED BLOOD COUNT 3.84 10^6/ul (4.20-5.40); RED CELL DISTRIBUTION WIDTH 14.5 % (11.5-14.5)
[2018-05-01] MEDS: LACTATED RINGER'S 1,000 ML IV ×4 (01:10→18:05)
[2018-05-01 01:49] LABS: HEMATOCRIT 31.7 % (37.0-47.0); HEMOGLOBIN 10.4 g/dl (12.0-16.0)
[2018-05-01] MEDS: ACCU-CHEK XX (01:56)
[2018-05-01] MEDS ORDERED: ACCU-CHEK XX (02:00)
[2018-05-01] MEDS: CEFAZOLIN 2 GM/50 ML (PMX) 50 ML IVPB (02:42)
[2018-05-01] MEDS: morphine LIQ (10 MG/5 ML) CUP PO (02:44)
[2018-05-01] MEDS: INSULIN ASPART [NOVOLOG] 3 ML PEN SC ×4 (05:00→17:00)
[2018-05-01] MEDS ORDERED: MIDAZOLAM 1 MG/ML 2 ML INJ (14:47)
[2018-05-01] MEDS ORDERED: PROPOFOL 20 ML (14:48)
[2018-05-01] MEDS ORDERED: LIDOCAINE 2% (SDV) 5 ML INJ (14:48)
[2018-05-01] MEDS ORDERED: FENTAnyl 50 MCG/ML VIAL (14:48)
[2018-05-01] MEDS ORDERED: CEFAZOLIN 1 GM INJ (14:54)
[2018-05-01] MEDS ORDERED: ONDANSETRON 4 MG INJ (14:56)
[2018-05-01] MEDS ORDERED: METOCLOPRAMIDE 10 MG INJ (14:56)
[2018-05-01] MEDS ORDERED: ONDANSETRON 4 MG INJ IV (15:00)
[2018-05-01] MEDS ORDERED: FENTAnyl 50 MCG/ML VIAL IV (15:00)
[2018-05-01] MEDS ORDERED: PROCHLORPERAZINE 10 MG INJ IV (15:00)
[2018-05-01] MEDS ORDERED: MEPERIDINE 25 MG INJ IV (15:00)
[2018-05-01] MEDS ORDERED: HYDROmorphONE 1 MG/5 ML IV SYRINGE IV ×3 (15:00)
[2018-05-01] MEDS ORDERED: DIPHENHYDRAMINE 50 MG INJ IV (15:00)
[2018-05-01] MEDS ORDERED: EPHEDrine 25 MG/5 ML SYG (15:19)
[2018-05-01] MEDS ORDERED: INSULIN ASPART [NOVOLOG] 3 ML PEN SC (17:35)
[2018-05-01] MEDS: Insulin NOVOLOG SS MILD Algorithm (SS with meals and bedtime) SC ×2 (17:35→20:19)
[2018-05-01] MEDS: HYDROCODONE/APAP (10/325) TAB PO ×2 (18:41→23:00)
[2018-05-02] MEDS: ACCUCHECK AT 2AM (Patients on SS coverage) XX (00:02)
[2018-05-02] MEDS: LACTATED RINGER'S 1,000 ML IV ×3 (02:02→18:27)
[2018-05-02] MEDS: HYDROCODONE/APAP (10/325) TAB PO ×3 (06:05→20:06)
[2018-05-02] MEDS: Insulin NOVOLOG SS MILD Algorithm (SS with meals and bedtime) SC ×4 (07:30→20:10)
[2018-05-02 15:35] LABS: INR 1.15; PROTIME 14.9 Sec (11.9-14.9); PT RATIO 1.2
[2018-05-03] MEDS: LACTATED RINGER'S 1,000 ML IV ×2 (01:01→02:23)
[2018-05-03] MEDS: ACCUCHECK AT 2AM (Patients on SS coverage) XX ×2 (02:00→21:50)
[2018-05-03] MEDS: HYDROCODONE/APAP (10/325) TAB PO ×2 (02:51→22:25)
[2018-05-03] MEDS: Insulin NOVOLOG SS MILD Algorithm (SS with meals and bedtime) SC ×4 (07:30→21:00)
[2018-05-03] MEDS: LISINOPRIL 10 MG TAB PO (16:48)
[2018-05-03] MEDS: METOPROLOL 25 MG TAB PO (16:49)
[2018-05-04] MEDS: morphine LIQ (10 MG/5 ML) CUP PO (00:08)
[2018-05-04] MEDS: HYDROCODONE/APAP (10/325) TAB PO ×3 (04:40→23:34)
[2018-05-04] MEDS: Insulin NOVOLOG SS MILD Algorithm (SS with meals and bedtime) SC ×4 (07:30→20:38)
[2018-05-04] MEDS: METOPROLOL 25 MG TAB PO (08:00)
[2018-05-04] MEDS: LISINOPRIL 10 MG TAB PO (08:01)
[2018-05-04] MEDS: ACCUCHECK AT 2AM (Patients on SS coverage) XX (20:39)
[2018-05-05] MEDS: INSULIN ASPART [NOVOLOG] 3 ML PEN SC ×4 (01:00→12:02)
[2018-05-05] MEDS ORDERED: POLYMYXIN/BACITRACIN 1L IRRIG (06:58)
[2018-05-05] MEDS ORDERED: MIDAZOLAM 1 MG/ML 2 ML INJ (07:40)
[2018-05-05] MEDS ORDERED: LIDOCAINE 1% (MDV) 10 ML INJ ×2 (07:40→08:38)
[2018-05-05] MEDS ORDERED: FENTAnyl 50 MCG/ML VIAL (07:40)
[2018-05-05] MEDS ORDERED: HEPARIN 1000 UNITS/NS (A-LINE) 1,000 ML (07:40)
[2018-05-05] MEDS ORDERED: SOD CHLORIDE 0.9% 500 ML (08:38)
[2018-05-05] MEDS ORDERED: HEPARIN 1000 UNITS/ML 10 ML INJ (08:38)
[2018-05-05] MEDS: METOPROLOL 25 MG TAB PO (09:23)
[2018-05-05] MEDS: LISINOPRIL 10 MG TAB PO (09:23)
[2018-05-05] MEDS: HYDROCODONE/APAP (10/325) TAB PO (11:25)
== END 2018-05-05 14:20 | disposition home or self-care (01) | DRG 744 ==
LOC: E/R 16:35 → PP2 22:41
PROC: 0UDB7ZZ Extraction of Endometrium, Via Natural or Artificial Opening (ICD-10-PCS; principal; 2018-05-01 13:00)
PROC: 0JH63XZ Insertion of Tunneled Vascular Access Device into Chest Subcutaneous Tissue and Fascia, Percutaneous Approach (ICD-10-PCS; 2018-05-01 14:45)
PROC: 02H633Z Insertion of Infusion Device into Right Atrium, Percutaneous Approach (ICD-10-PCS; 2018-05-01 14:45)
PROC: B214YZZ Fluoroscopy of Right Heart using Other Contrast (ICD-10-PCS; 2018-05-01 14:45)
DX: N95.2 Postmenopausal atrophic vaginitis (principal); C78.7 Secondary malignant neoplasm of liver and intrahepatic bile duct; C18.7 Malignant neoplasm of sigmoid colon; R10.9 Unspecified abdominal pain; E11.9 Type 2 diabetes mellitus without complications; R19.09 Other intra-abdominal and pelvic swelling, mass and lump; N93.9 Abnormal uterine and vaginal bleeding, unspecified; R31.9 Hematuria, unspecified; Z93.3 Colostomy status; Z90.49 Acquired absence of other specified parts of digestive tract; Z79.4 Long term (current) use of insulin
CPT/HCPCS: 36415; 72196; 74176; 76830; 76856; 76937; 80048; 80053; 81001; 82378; 82962; 83036; 83690; 83735; 84443; 84703; 85014; 85018; 85025; 85610; 85730; 86301; 86304; 86850; 86900; 86901; 88305; 96374; 96375; 99285-25